=== PATIENT | male | born 1955 | race Caucasian/White ===

== ENCOUNTER → 2018-09-17 | Outpatient (CLI) | payer BC ==
--- NOTE | 2018-09-17 23:21 | US ---
EXAMINATION TYPE: US extremity nonvascular ltd LT DATE OF EXAM: 09/17/2018 COMPARISON: NONE CLINICAL HISTORY: 62-year-old male M25.562 Pain/Stiffness in Light knee. Pt states left knee pressure /stiffness TECHNIQUE: Multiple sonographic images of the left posterior knee for assessment of Herman's cyst. 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
--- NOTE | 2018-09-17 23:28 | XR ---
EXAMINATION TYPE: XR knee complete LT DATE OF EXAM: 09/17/2018 COMPARISON: NONE HISTORY: 62-year-old male pain and stiffness in the left knee TECHNIQUE: 3 views FINDINGS: Joint space narrowing in the medial compartment with prominent marginal spurring. There may be severe loss of cartilage and joint space, under estimated due to lack of nonweightbearing view. There is perez bchondral sclerosis and suggestion of slight early bony remodeling. Degenerative spurring also seen w ithin the patellofemoral compartment. Small knee joint effusion nonspecific, likely reactive. No acut e fracture, subluxation, or dislocation. IMPRESSION: Suspect that the degree of joint space narrowing in the medial compartment is underestimated on this nonweightbearing view. There may be underlying severe osteoarthrosis here within the medial compartme nt. Additional moderate osteoarthrosis in the patellofemoral compartment. Small knee joint effusion l ikely reactive.
== END | disposition home or self-care (01) ==
LOC: RADUSWWP 15:28
PROVIDERS: ATTEND Family Medicine
DX: M17.12 Unilateral primary osteoarthritis, left knee (principal); M71.22 Synovial cyst of popliteal space [Baker], left knee